=== PATIENT | female | born 1995 | race Caucasian/White ===

== ENCOUNTER 2017-05-14 22:59 | Inpatient (IN) | payer SELFPAY ==
[2017-05-15 01:02] LABS: Basophils % (Auto) 0.6 % (0.0-1.8); Hematocrit 39.9 % (30.3-42.9); Hemoglobin 13.4 gm/dl (10.1-14.3); Mean Corpuscular HGB Conc 34 % (30-34); Mean Corpuscular Hemoglobin 29 pg (28-32); Mean Corpuscular Volume 86 fl (79-97); Platelet Count 182 K/mm3 (140-440); Red Blood Count 4.64 M/mm3 (3.65-5.03); Red Cell Distribution Width 13.9 % (13.2-15.2); White Blood Count 8.8 K/mm3 (4.5-11.0)
[2017-05-15 01:20] LABS: Alanine Aminotransferase 675 units/L (7-56); Albumin 4.3 g/dL (3.9-5); Albumin/Globulin Ratio 1.3 %; Alkaline Phosphatase 173 units/L (35-129); Anion Gap 17 mmol/L; BUN/Creatinine Ratio 14; Blood Urea Nitrogen 7 mg/dL (7-17); Calcium 8.9 mg/dL (8.4-10.2); Carbon Dioxide 25 mmol/L (22-30); Chloride 101.1 mmol/L (98-107); Glucose 102 mg/dL (65-100); Lipase 26 units/L (13-60); Potassium 3.4 mmol/L (3.6-5.0); Sodium 140 mmol/L (137-145); Total Protein 7.7 g/dL (6.3-8.2)
[2017-05-15 01:57] LABS: Bilirubin,Urine MOD (Negative); Blood,Urine NEG (Negative); Ketones,Urine TR mg/dL (Negative); Leukocyte Esterase,Urine TR (Negative); Mucus,Urine 1+ /HPF; Nitrite,Urine NEG (Negative); Protein,Urine <15 mg/dL mg/dL (Negative); WBC,Urine < 1.0 /HPF (0.0-6.0)
[2017-05-15] MEDS ORDERED: NACL 0.9% 1000 ML 1,000 ML IV ONE (16:35)
[2017-05-15] MEDS ORDERED: ZOFRAN IV ONE (16:37)
[2017-05-15] MEDS ORDERED: MORPHINE IV ONE (16:37)
--- NOTE | 2017-05-15 16:46 | Emergency Department Report ---
ED Abdominal Pain HPI - General Chief Complaint: Abdominal Pain Stated Complaint: BACK/ABD PAIN Time Seen by Provider: 05/15/17 16:29 Source: patient Mode of arrival: Ambulatory Limitations: No Limitations - History of Present Illness Initial Comments: 21-year-old female 3 para 2 currently at unknown age gestation presenting to the ED complaining of abdominal pain. Onset of pain started 2 days prior to ED arrival. Pain is located right upper quadrant. Pain is radiating towards the epigastric region. Pain is accompanied by nausea vomiting that was nonbloody, nonbilious. Pt was just notified she was . Pt denies: fever/chills, headache, neck pain ,chest pain, abdominal pain, diarrhea MD Complaint: abdominal pain -: days(s) (1) Location: RUQ Radiation: epigastric Migration to: no migration Severity: moderate Severity scale (0 -10): 2 Quality: cramping Consistency: constant Improves With: nothing Worsens With: vomiting Associated Symptoms: nausea, vomiting. denies: diarrhea, constipation, dysuria , hematemesis, melena, hematuria - Related Data Home Medications Medication Instructions Recorded Confirmed Last Taken Pnv,Calcium 72/Iron/Folic Acid 1 cap PO DAILY 11/21/13 05/17/15 1 Day Ago [Pnv Plus Multivit Tab] 1 tab Previous Rx's Medication Instructions Recorded Last Taken Type Ibuprofen [Motrin 600 MG tab] 600 mg PO Q6HR #30 tablet 11/22/13 Unknown Rx oxyCODONE /ACETAMINOPHEN [Percocet 1 tab PO Q6H PRN #30 tablet 11/22/13 Unknown Rx 5/325 mg] Allergies Allergy/AdvReac Type Severity Reaction Status Date / Time No Known Allergies Allergy Verified 11/20/13 23:40 ED Review of Systems ROS: Stated complaint: BACK/ABD PAIN Other details as noted in HPI Constitutional: denies: chills, fever Eyes: denies: eye pain, eye discharge, vision change ENT: denies: ear pain, throat pain Respiratory: denies: cough, shortness of breath, wheezing Cardiovascular: denies: chest pain, palpitations Endocrine: no symptoms reported Gastrointestinal: abdominal pain, nausea, vomiting. denies: diarrhea, constipation, hematemesis, hematochezia Genitourinary: denies: urgency, dysuria, discharge Musculoskeletal: denies: back pain, joint swelling, arthralgia Skin: denies: rash, lesions Neurological: denies: headache, weakness, paresthesias Psychiatric: denies: anxiety, depression Hematological/Lymphatic: denies: easy bleeding, easy bruising ED Past Medical Hx - Past Medical History Previous Medical History?: No Hx Hypertension: No Hx Congestive Heart Failure: No Hx Diabetes: No Hx Deep Vein Thrombosis: No Hx Renal Disease: No Hx Sickle Cell Disease: No Hx Seizures: No Hx Asthma: No Hx COPD: No Hx HIV: No - Surgical History Past Surgical History?: No - Social History Smoking Status: Former Smoker Substance Use Type: Alcohol, Marijuana - Medications Home Medications: Home Medications Medication Instructions Recorded Confirmed Last Taken Type Pnv,Calcium 72/Iron/Folic Acid 1 cap PO DAILY 11/21/13 05/17/15 1 Day Ago History [Pnv Plus Multivit Tab] 1 tab Ibuprofen [Motrin 600 MG tab] 600 mg PO Q6HR #30 tablet 11/22/13 05/17/15 Unknown Rx oxyCODONE /ACETAMINOPHEN [Percocet 1 tab PO Q6H PRN #30 tablet 11/22/13 Unknown Rx 5/325 mg] ED Physical Exam - General Limitations: No Limitations General appearance: alert, in no apparent distress - Head Head exam: Present: atraumatic, normocephalic - Eye Eye exam: Present: normal appearance - ENT ENT exam: Present: mucous membranes moist - Neck Neck exam: Present: normal inspection - Respiratory Respiratory exam: Present: normal lung sounds bilaterally. Absent: respiratory distress - Cardiovascular Cardiovascular Exam: Present: regular rate, normal rhythm. Absent: systolic murmur, diastolic murmur, rubs, gallop - GI/Abdominal GI/Abdominal exam: Present: soft, normal bowel sounds - Extremities Exam Extremities exam: Present: normal inspection - Back Exam Back exam: Present: normal inspection - Neurological Exam Neurological exam: Present: alert, oriented X3 - Psychiatric Psychiatric exam: Present: normal affect, normal mood - Skin Skin exam: Present: warm, dry, intact, normal color. Absent: rash ED Course Vital Signs 05/15/17 05/15/17 05/15/17 00:18 06:39 08:19 Temperature 98.9 F 98.1 F 99.2 F Pulse Rate 58 L 60 77 Respiratory 20 14 16 Rate Blood Pressure 107/73 127/76 130/66 Blood Pressure [Right] O2 Sat by Pulse 100 100 Oximetry 05/15/17 05/15/17 05/15/17 16:21 16:30 16:38 Temperature 98.6 F Pulse Rate 59 L 53 L Respiratory 15 20 Rate Blood Pressure 138/89 Blood Pressure 119/71 [Right] O2 Sat by Pulse 89 100 100 Oximetry 05/15/17 05/15/17 05/15/17 16:45 18:23 18:31 Temperature Pulse Rate 52 L Respiratory 26 H Rate Blood Pressure 117/69 117/69 117/69 Blood Pressure [Right] O2 Sat by Pulse 100 89 95 Oximetry 05/15/17 05/15/17 05/15/17 18:45 19:01 19:15 Temperature Pulse Rate 57 L 58 L 56 L Respiratory 23 20 18 Rate Blood Pressure 82/41 79/35 96/48 Blood Pressure [Right] O2 Sat by Pulse 97 95 96 Oximetry 05/15/17 05/15/17 05/15/17 19:30 19:45 19:58 Temperature Pulse Rate 50 L 52 L Respiratory 17 22 18 Rate Blood Pressure 91/56 90/49 Blood Pressure [Right] O2 Sat by Pulse 97 96 97 Oximetry - Reevaluation(s) Reevaluation #1: 05/15/17 19:10 I consult with general surgery Dr. Borjas who says at this time surgery is not indicated. He recommends GI for possible ERCP/MRCP , and OB consult. He states at this time there is no indication for surgery. Reevaluation #2: 05/15/17 19:47 Dr Barreto - GI states he will consult on patient and likely perform MRCP, he states the patient will have to be advised that she has to cover her pelvis with barrier during MRCP and he'll explain risks of procedure to mom and early fetus. Dr Barreto- SERVICE TRAINER will admit patient to her service given that she 6 weeks however she will refer to GIs recommendation on management for patient' s symptoms. Reevaluation #3: 05/15/17 21:00 Dr Barreto SERVICE TRAINER at bedside evaluating pt and will place orders for admission ED Medical Decision Making - Lab Data Result diagrams: 05/15/17 00:32 05/15/17 00:32 - Radiology Data Radiology results: report reviewed, image reviewed Abdominal ultrasound results and final impression: Cholelithiasis, including gallstone in the gallbladder neck. There is no gallbladder wall thickening, but the common bile duct is facilitated there is mild intrahepatic biliary dilatation. Consider further evaluation and follow-up there is continued clinical concern for biliary pathology including acute cholecystitis, although taking into account the patient is . Dr Beck Single live intrauterine gestation approximately 6 weeks, [address] Beck - Medical Decision Making 21 yo female presenting to ED with abdominal pain. 1) gallstones During this visit patient no evidence of cholecystitis. GI was called for possible ERCP/MRCP. Gen. surgery Dr Suarez is on board however has no recognition that this time. Patient admits SERVICE TRAINER service Dr. Barreto accepting. 2) pregnacy nothing to do at this time, no evidence of ectopic Patient agrees to admission plan and has no questions at this time. Critical Care Time: Yes Critical care time in (mins) excluding proc time.: 35 Critical care attestation.: If time is entered above; I have spent that time in minutes in the direct care of this critically ill patient, excluding procedure time. Critical Care Time: 35 minutes of critical care time spent talking to patient, general surgery, OB, GI. ED Disposition Clinical Impression: Gallstones, Gallstones with obstruction of gallbladder, Transaminitis, Early stage of , Abdominal pain affecting Disposition: DC-[id number] OP ADMIT IP TO THIS HOSP Is pt being admited?: Yes Does the pt Need Aspirin: No Condition: Stable Instructions: Abdominal Pain (ED) Referrals: PRIMARY CARE, [Primary Care Provider] - 3-5 Days
--- NOTE | 2017-05-15 18:37 | Ultrasound Report ---
FINAL REPORT PROCEDURE: US ABDOMEN LIMITED TECHNIQUE: Real-time sonography in multiple planes of the gallbladder fossa and CBD with imaging of the adjacent liver, pancreas, and right kidney was performed with image documentation. CPT 57736 HISTORY: Right upper quadrant abdominal pain. COMPARISON: No prior studies are available for comparison. FINDINGS: Liver: Normal size and echotexture with no evidence of cystic or solid mass lesion. Gallbladder: There are several gallstones. One in the gallbladder neck measures 1.8 centimeters. One in the body measures 2.1 centimeters. A 3rd in the fundus measures 9 millimeters. Gallbladder wall thickness 1.6 millimeters. Common bile duct 13.5 millimeters. There is mild intrahepatic biliary dilatation. Intrahepatic bile ducts: Normal . Extrahepatic bile ducts: Normal . Pancreas: Normal as visualized with suboptimal depiction of the pancreatic tail. Right kidney: Normal echotexture. No focal renal mass, calculus, or hydronephrosis. The right kidney measures 11.9 x 4.8 x 5.3 centimeters with cortical thickness of 1.5 centimeters. Other: No free fluid. IMPRESSION: Cholelithiasis, including a gallstone in the gallbladder neck. There is not gallbladder wall thickening, but the common bile duct is dilated and there is mild intrahepatic biliary dilatation. Consider further evaluation and followup if there is continued clinical concern for biliary pathology including acute cholecystitis, although taking into account that patient is .
--- NOTE | 2017-05-15 18:47 | Ultrasound Report ---
FINAL REPORT PROCEDURE: US OB \T\lt; = 14 WEEKS FETUS TECHNIQUE: Real-time transabdominal and transvaginal sonography of the uterus, placenta, amniotic fluid, adnexa, and fetus was performed with image documentation. Measurements were obtained to determine age/size. M-mode Doppler was used to document heartbeat. CPT 98302 and 44970 HISTORY: Abdominal pain. COMPARISON: No prior studies are available for comparison. FINDINGS: LMP: 03/29/2017. Clinical age: 6 weeks 5 days. EDC: 01/03/2018. CRL: 4.4 millimeters, which corresponds to a gestational age of: 6 weeks 1 day. Yolk Sac: Normal. Embryonic Cardiac Activity: 113 beats per minute. Gestational Sac: Mean sac diameter 15.3 millimeters, 6 weeks 2 days. Amniotic fluid: Normal. Cervix: Normal. Uterus: 10.7 x 5.5 x 6.9 centimeters. Right Ovary: 2.9 x 2.1 x 2.5 centimeters. Normal flow. Left Ovary: 3.0 x 2.3 x 3.4 centimeters. 2 x 1.5 x 1.7 centimeter complex hypoechoic region. Normal flow. Estimated delivery date: 01/06/2018. IMPRESSION: 1. Single live intrauterine gestation at approximately 6 weeks, 2 days. 2. EDC by US 01/06/2018. 3. Complete anatomic survey at 18-20 weeks suggested. At this time complex hypoechoic area in the left ovary which likely represents complex cyst can be re-evaluated.
--- NOTE | 2017-05-15 18:49 | Ultrasound Report ---
FINAL REPORT PROCEDURE: US OB \T\lt; = 14 WEEKS FETUS TECHNIQUE: Real-time transabdominal and transvaginal sonography of the uterus, placenta, amniotic fluid, adnexa, and fetus was performed with image documentation. Measurements were obtained to determine age/size. M-mode Doppler was used to document heartbeat. CPT 26937 and 23780 HISTORY: Abdominal pain. COMPARISON: No prior studies are available for comparison. FINDINGS: LMP: 03/29/2017. Clinical age: 6 weeks 5 days. EDC: 01/03/2018. CRL: 4.4 millimeters, which corresponds to a gestational age of: 6 weeks 1 day. Yolk Sac: Normal. Embryonic Cardiac Activity: 113 beats per minute. Gestational Sac: Mean sac diameter 15.3 millimeters, 6 weeks 2 days. Amniotic fluid: Normal. Cervix: Normal. Uterus: 10.7 x 5.5 x 6.9 centimeters. Right Ovary: 2.9 x 2.1 x 2.5 centimeters. Normal flow. Left Ovary: 3.0 x 2.3 x 3.4 centimeters. 2 x 1.5 x 1.7 centimeter complex hypoechoic region. Normal flow. Estimated delivery date: 01/06/2018. IMPRESSION: 1. Single live intrauterine gestation at approximately 6 weeks, 2 days. 2. EDC by US 01/06/2018. 3. Complete anatomic survey at 18-20 weeks suggested. At this time complex hypoechoic area in the left ovary which likely represents complex cyst can be re-evaluated.
[2017-05-15] MEDS ORDERED: NACL 0.9% 1000 ML 1,000 ML IV SCH (20:00)
--- NOTE | 2017-05-15 22:33 | History and Physical Report ---
History of Present Illness Date of examination: 05/15/17 Date of admission: 05/15/17 Chief complaint: nausea ad vomiting and abdominal pain History of present illness: 21 yo LMP irregular began having nausea and vomiting on Thursday. Abdominal pain and cramping started Thursday as well. Patient denies vb no dysuria and no urgency . Pain also reported on right shoulder and gas pain . Urine was also noted dark. Patient came to Er because of the pain and unable to keep food. Patient has not been eating since Thursday becuase of the pain. Relief of the pain ranked 5/10 after vomiting. She rports pain in the mid epigastric area. patient was not aware that she was until US ordered today. She currently has no pain. Past History Past Medical History: no pertinent history Past Surgical History: no surgical history Family/Genetic History: diabetes (father), hypertension (father) Social history: no significant social history, , lives with family, smoking, alcohol abuse. denies: prescription drug abuse - Obstetrical History Expected Date of Delivery: 01/03/18 Actual Gestation: 6 Week(s) 5 Day(s) : 3 Para: 2 Hx # Term Pregnancies: 2 Number of Pregnancies: 0 Spontaneous Abortions: 0 Induced : 0 Number of Living Children: 2 Medications and Allergies Allergies Allergy/AdvReac Type Severity Reaction Status Date / Time No Known Allergies Allergy Verified 11/20/13 23:40 Home Medications Medication Instructions Recorded Confirmed Last Taken Type Pnv,Calcium 72/Iron/Folic Acid 1 cap PO DAILY 11/21/13 05/17/15 1 Day Ago History [Pnv Plus Multivit Tab] 1 tab Ibuprofen [Motrin 600 MG tab] 600 mg PO Q6HR #30 tablet 11/22/13 05/17/15 Unknown Rx oxyCODONE /ACETAMINOPHEN [Percocet 1 tab PO Q6H PRN #30 tablet 11/22/13 Unknown Rx 5/325 mg] Active Meds: Active Medications Sodium Chloride (Nacl 0.9% 1000 Ml) 1,000 mls @ 100 mls/hr IV DIRECT TYLER Review of Systems All systems: negative Gastrointestinal: abdominal pain, nausea, vomiting - Vital Signs Vital signs: Vital Signs Temp Pulse Resp BP Pulse Ox 98.9 F 58 L 20 107/73 100 05/15/17 00:18 05/15/17 00:18 05/15/17 00:18 05/15/17 00:18 05/15/17 00:18 Temp Pulse Resp BP Pulse Ox 98.6 F 52 L 18 90/49 97 05/15/17 16:38 05/15/17 19:45 05/15/17 19:58 05/15/17 19:45 05/15/17 19:58 - Physical Exam Breasts: Positive: deferred Cardiovascular: Regular rate, Normal S1 Lungs: Positive: Clear to auscultation, Normal air movement Abdomen: Positive: normal appearance, soft, normal bowel sounds. Negative: distention, tenderness, guarding Genitourinary (Female): Positive: normal external genitalia, normal perenium Vulva: both: normal Uterus: Positive: normal size Anus/Rectum: Positive: normal perianal skin Extremities: Positive: normal Deep Tendon Reflex Grade: Normal +2 Results Result Diagrams: 05/15/17 00:32 05/15/17 00:32 Abnormal lab results 05/15/17 05/15/17 05/15/17 Range/Units 00:32 00:32 00:32 Seg Neutrophils % 70.8 H (40.0-70.0) % Potassium 3.4 L (3.6-5.0) mmol/L Creatinine 0.5 L (0.7-1.2) mg/dL Glucose 102 H (65-100) mg/dL Total Bilirubin 2.20 H (0.1-1.2) mg/dL AST 382 H (5-40) units/L ALT 675 H (7-56) units/L Alkaline Phosphatase 173 H (35-129) units/L HCG, Quant 5892 H (0-4) mIU/mL All other labs normal. Ultrasound: report reviewed Assessment and Plan A/P IUP 6 weeks (viable) abdominal pain elevated liver enzymes consult pending with Dr. Estevan Flores in am await recommendations initate IVF, pain meds
[2017-05-16] MEDS ORDERED: LACTATED RINGERS 1,000 ML IV SCH (05:00)
[2017-05-16] MEDS ORDERED: COLACE PO PRN (05:00)
[2017-05-16] MEDS ORDERED: TYLENOL PO PRN (05:00)
--- NOTE | 2017-05-16 13:27 | Event Note ---
Date: 05/16/17 Awaiting consult from GI No new complaints. paged Dr. Barreto ( GI)
--- NOTE | 2017-05-16 13:40 | Consultation ---
DATE OF SERVICE: 05/16/2017 HISTORY OF PRESENT ILLNESS: This patient was seen in the Emergency Room last night. She is a 21-year-old -[place] female. She came because of severe pain that she developed in the right upper quadrant of about 3 days' duration. She had some pains like these every now and then over the last year. She did not seek any medical attention at that point. At this time, she was evaluated by our ER physician. According to them, the pain would radiate to the right flank and towards the epigastric area associated with nausea and vomiting. She had no blood in the vomitus and it was not bilious. She said that she was found being . She had no fever and her white count was 8.8, hemoglobin was 13.4. The potassium is 3.4. Hepatitis C antibodies and hepatitis A was negative. Her total bilirubin is 2.2 and the alkaline phosphatase is 173. The ALT and the AST were elevated. The lipase was negative. The hCG qualitative was positive and quantitative is 5892. According to the patient, when I saw her this morning, she told me that the pain is gone completely and she is little bit hungry. She had abdominal ultrasound yesterday upon presenting via the Emergency Room and it showed evidence of stones in the gallbladder and some in the thick area. The patient was seen by Cara Barreto MD, who admitted her apparently for the obvious aspect of the problem. As mentioned above, the patient had these symptoms every now and then over the last year. PAST MEDICAL HISTORY: She has 2 children; the youngest is 2 years old. ALLERGIES: The patient is not allergic to any medicine. She never had any abdominal operations. She denied any diabetes mellitus. She denied any high blood pressure. PHYSICAL EXAMINATION: GENERAL: At this point showed a well preserved, morbidly obese -[place] female. She is sociable, in no distress. HEAD AND NECK: Negative. NECK: Supple. CHEST: Essentially clear. HEART: Sounds normal. BREASTS: Symmetric. ABDOMEN: Protuberant, soft, benign. No evidence of any tenderness at the abdomen. EXTREMITIES: Showed no significant edema. IMPRESSION AND PLAN: Right upper quadrant pain of 3-4 days' duration with nausea and vomiting with evidence of high bilirubin of 2.2 and ultrasound compatible with dilated common bile duct. The gallbladder wall was a bit thickened at 1.6 mm. Common bile duct is 13.5 mm, which was very high. Surgically speaking, I do not think the patient can face any surgical intervention by virtue of she is only 6 weeks . I believe at the present time, she needs to make a major decision as to thinking her because she would need an operation may be or I gave her the option of doing cholecystostomy on her, this would be done by Interventional Radiology. I believe we may feed her now, but we will go from left the decision really for her as well her . I do not think any surgery needs to be done on her, may be a cholecystostomy and she needs to have a GI see her. JOB# [id number] ЕЛ[facility]/CINDY
[2017-05-16] MEDS: PRENATAL VITAMIN PO SCH (17:59)
--- NOTE | 2017-05-16 18:53 | Event Note ---
Date: 05/16/17 - full consult dictate - pt 6 weeks now increase lft's and dilated cbd - discussed w/ pt, mrcp not option, - pt to consider ERCP (less likely) vs conservative management (more likely - will follow
--- NOTE | 2017-05-17 03:03 | Consultation ---
INDICATION: Abdominal pain due to increased liver function tests. REFERRING PHYSICIAN: Cara Barreto MD HISTORY OF PRESENT ILLNESS: The patient is a 21-year-old female who presents for abdominal pain. The patient reports recent nausea and vomiting with eating, especially fatty foods. The patient reports this started this past Thursday. She reported some right shoulder pain. She reports no lower GI symptoms including diarrhea, constipation or rectal bleeding. The patient subsequently came to the Emergency Room. In the Emergency Room, she was noted to have increased liver function tests and ultrasound showing dilated common bile duct with a question of a CBD stone. The patient subsequently admitted and GI consulted. PAST MEDICAL HISTORY: None. MEDICATIONS: None. ALLERGIES: No known drug allergies. SOCIAL HISTORY: Denies alcohol, tobacco or drug abuse. FAMILY HISTORY: Negative for colon cancer, IBD, or liver disease. REVIEW OF SYSTEMS: GENERAL: Reports mild weakness. HEENT: No visual complaints or tinnitus. PULMONARY: Denies shortness of breath. CARDIOVASCULAR: Denies chest pain. GASTROINTESTINAL: Reports abdominal pain. All points of 13-point review of systems otherwise negative. PHYSICAL EXAMINATION: VITAL SIGNS: Temperature of 98.8, pulse 80, respirations 18, blood pressure of 97/32. HEENT: Pupils equal, round, reactive to light and accommodation. Extraocular muscles intact. PULMONARY: Clear to auscultation bilaterally. CARDIOVASCULAR: Regular rhythm. Normal S1, S2. ABDOMEN: Positive bowel sounds, soft. SKIN: No obvious rashes. LABORATORY DATA: Pertinent for white count of 8.8, hemoglobin and hematocrit of 13.1 and 39.9, platelet count of 182. Chem-7 within normal limits. Total bilirubin of 2.2, AST and ALT of 382 and 675, alkaline phosphatase of 123. HCG positive. Ultrasound showed bile duct is dilated with mild intrahepatic dilation and gallstones. ASSESSMENT AND PLAN: A 21-year-old female who now found to be 6 weeks , presents now with less than 1 week of right upper quadrant pain, worse with eating, with pain radiating to the right shoulder with an ultrasound showing gallstones with a question of common bile duct dilation and labs showing increased liver function tests. The patient has gallstones with a possibility of choledocholithiasis. Due to her 6 weeks , she is not a candidate for MRCP at this time. I have discussed the options with the patient including a consideration of ERCP if she elects to not have the or with the risk of possible compromise from the procedure versus conservatively managing and see how she does with a low fat diet. The patient would like to discuss her options with her . PLAN: 1. Follow LFTs. 2. Low fat diet. 3. Await further surgery input. 4. We will follow up in a.m. JOB# [id number] [facility]/CINDY
[2017-05-17 07:52] LABS: Alanine Aminotransferase 302 units/L (7-56); Albumin 3.7 g/dL (3.9-5); Albumin/Globulin Ratio 1.3 %; Alkaline Phosphatase 149 units/L (35-129); Anion Gap 16 mmol/L; BUN/Creatinine Ratio 16; Blood Urea Nitrogen 8 mg/dL (7-17); Calcium 8.9 mg/dL (8.4-10.2); Carbon Dioxide 24 mmol/L (22-30); Glucose 87 mg/dL (65-100); Sodium 138 mmol/L (137-145); Total Protein 6.6 g/dL (6.3-8.2)
[2017-05-17 07:56] LABS: Potassium 4.2 mmol/L (3.6-5.0)
--- NOTE | 2017-05-17 09:49 | Gastroenterology Progress Note ---
Subjective Date of service: 05/17/17 Interval history: GI: pt w/ increase lft's and ultrasound suggesting biliary obstruction - pt labs improving, possible passed stone - discussed w/ pt, defers ERCP at this time (reasonable) - low fat diet - ok to d/c from GI standpoint - GB per surgery - call if needed Objective - Constitutional Vitals: Temp Pulse Resp BP Pulse Ox 98.8 F 65 20 92/46 99 05/17/17 05:10 05/17/17 05:10 05/17/17 05:10 05/17/17 05:10 05/16/17 08:02 - Labs CBC & Chem 7: 05/15/17 00:32 05/17/17 07:11 Labs: Laboratory Results - last 24 hr 05/17/17 07:11 Sodium 138 Potassium 4.2 D Chloride 102.0 Carbon Dioxide 24 Anion Gap 16 BUN 8 Creatinine 0.5 L Estimated GFR > 60 BUN/Creatinine Ratio 16 Glucose 87 Calcium 8.9 Total Bilirubin 0.80 AST 69 H ALT 302 H Alkaline Phosphatase 149 H Total Protein 6.6 Albumin 3.7 L Albumin/Globulin Ratio 1.3
[2017-05-17] MEDS: PRENATAL VITAMIN PO SCH (11:39)
--- NOTE | 2017-05-17 15:09 | Progress Note ---
Subjective Patient Reports: Positive: feels better, flatus Narrative: Pain free LFT improved , indicated to Pt , that Sx may recure . will see PRN, Objective Vital Signs - 12hr 05/17/17 05:10 Temperature 98.8 F Pulse Rate 65 Respiratory 20 Rate Blood Pressure 92/46 [Right] - Labs 05/15/17 00:32 05/17/17 07:11 Diabetes panel 05/17/17 Range/Units 07:11 Sodium 138 (137-145) mmol/L Potassium 4.2 D (3.6-5.0) mmol/L Chloride 102.0 (98-107) mmol/L Carbon Dioxide 24 (22-30) mmol/L BUN 8 (7-17) mg/dL Creatinine 0.5 L (0.7-1.2) mg/dL Glucose 87 (65-100) mg/dL Calcium 8.9 (8.4-10.2) mg/dL AST 69 H (5-40) units/L ALT 302 H (7-56) units/L Alkaline Phosphatase 149 H (35-129) units/L Total Protein 6.6 (6.3-8.2) g/dL Albumin 3.7 L (3.9-5) g/dL Calcium panel 05/17/17 Range/Units 07:11 Calcium 8.9 (8.4-10.2) mg/dL Albumin 3.7 L (3.9-5) g/dL Pituitary panel 05/17/17 Range/Units 07:11 Sodium 138 (137-145) mmol/L Potassium 4.2 D (3.6-5.0) mmol/L Chloride 102.0 (98-107) mmol/L Carbon Dioxide 24 (22-30) mmol/L BUN 8 (7-17) mg/dL Creatinine 0.5 L (0.7-1.2) mg/dL Glucose 87 (65-100) mg/dL Calcium 8.9 (8.4-10.2) mg/dL Adrenal panel 05/17/17 Range/Units 07:11 Sodium 138 (137-145) mmol/L Potassium 4.2 D (3.6-5.0) mmol/L Chloride 102.0 (98-107) mmol/L Carbon Dioxide 24 (22-30) mmol/L BUN 8 (7-17) mg/dL Creatinine 0.5 L (0.7-1.2) mg/dL Glucose 87 (65-100) mg/dL Calcium 8.9 (8.4-10.2) mg/dL Total Bilirubin 0.80 (0.1-1.2) mg/dL AST 69 H (5-40) units/L ALT 302 H (7-56) units/L Alkaline Phosphatase 149 H (35-129) units/L Total Protein 6.6 (6.3-8.2) g/dL Albumin 3.7 L (3.9-5) g/dL
--- NOTE | 2017-05-17 15:37 | Progress Note ---
Assessment and Plan A/P IUP 6 weeks (viable) seen by GI and surgery patient will decide plan of mgt considering surgery to be discharged after recommendations of GI and surgery improving liver enzymes continue present mgt Subjective - Subjective Date of service: 05/17/17 Principal diagnosis: abdominal pain and gallstones Interval history: 21 yo LMP irregular began having nausea and vomiting on Thursday. Abdominal pain and cramping started Thursday as well. Patient denies vb no dysuria and no urgency . Pain also reported on right shoulder and gas pain . Urine was also noted dark. Patient came to Er because of the pain and unable to keep food. Patient has not been eating since Thursday becuase of the pain. Relief of the pain ranked 5/10 after vomiting. She rports pain in the mid epigastric area. patient was not aware that she was until US ordered today. She currently has no pain. Patient reports: appetite normal, voiding normally, pain well controlled, flatus , ambulating normally Objective - Vital Signs Latest vital signs: Vital Signs Temp Pulse Resp BP 05/17/17 05:10 98.8 F 65 20 92/46 05/17/17 00:09 98.8 F 76 20 104/63 05/16/17 21:00 98.7 F 57 L 18 98/41 Intake and Output 05/16/17 05/17/17 05/17/17 23:59 07:59 15:59 Intake Total 240 Output Total 300 Balance -60 Intake: Intake, Free Water 240 Output: Urine 300 Void 300 Other: Total, Output Amount 300 Voiding Method Toilet - Exam Breasts: Present: deferred Cardiovascular: Present: Regular rate, Normal S1 Lungs: Present: Clear to auscultation Abdomen: Present: normal appearance, soft, normal bowel sounds. Absent: distention, tenderness Vulva: both: normal Uterus: Present: normal Extremities: Present: normal Deep Tendon Reflex Grade: Normal +2 - Labs Labs: Abnormal lab results 05/17/17 Range/Units 07:11 Creatinine 0.5 L (0.7-1.2) mg/dL AST 69 H (5-40) units/L ALT 302 H (7-56) units/L Alkaline Phosphatase 149 H (35-129) units/L Albumin 3.7 L (3.9-5) g/dL
--- NOTE | 2017-05-17 16:29 | Event Note ---
Date: 05/17/17 Patient indicted that she has decided to have the surgery. She has appt with an clinic for next week and will f/u with Dr. loyola for surgery to remove gallbladder. Patient to be discharged home with pain meds and precautions. She was given precautions
--- NOTE | 2017-05-17 16:31 | Discharge Summary ---
Providers - Providers Date of Admission: 05/16/17 05:00 Date of discharge: 05/17/17 Attending physician: GABRIELLE SCHWARTZ MD Primary care physician: [facility] WORK[facility] Hospitalization Reason for admission: other (abdominal pain 6 weeks ) Discharge diagnosis: other (Gallstones ) Condition at discharge: Good Disposition: [id number] TO HOME OR SELFCARE Plan - Provider Discharge Summary Activity: routine Diet: routine Instructions: routine Additional instructions: [] Smoking cessation referral if applicable(refer to patient education folder for contact #) [] Refer to [facility]'s [facility] Booklet Call your doctor immediately for: * Fever > 100.5 * Heavy vaginal bleeding ( >1 pad per hour) * Severe persistent headache * Shortness of breath * Reddened, hot, painful area to leg or breast * Drainage or odor from incision. * Keep incision clean and dry at all times and follow doctor's instructions regarding bathing/showering - Follow up plan Follow up: PRIMARY CARE, [Primary Care Provider] - 7 Days
[2017-05-17 18:10] VITALS: BP 101/49
== END 2017-05-17 19:00 | disposition home or self-care (01) | DRG 781 ==
LOC: ED 22:59 → OB 05-16 05:00
PROVIDERS: ADMIT Obstetrics & Gynecology; ATTEND Obstetrics & Gynecology
DX: O99.611 Diseases of the digestive system complicating pregnancy, first trimester (principal); K80.21 Calculus of gallbladder without cholecystitis with obstruction; Z3A.01 Less than 8 weeks gestation of pregnancy; Z87.891 Personal history of nicotine dependence
CPT/HCPCS: 36415; 76705; 76801; 76817; 80053; 80074; 81001; 83690; 84702; 84703; 85025; 87210; 87591; J7030; J7120

== ENCOUNTER 2021-07-04 22:55 | Emergency (ER) | payer SELFPAY ==
[2021-07-05 00:17] VITALS: BP 113/61
[2021-07-05 01:41] LABS: Bilirubin,Urine SM (Negative); Blood,Urine NEG (Negative); Color,Urine Amber (Yellow); Mucus,Urine 3+ /HPF
[2021-07-05 01:42] LABS: Alanine Aminotransferase 66 units/L (7-56); Albumin 4.8 g/dL (3.9-5); BUN/Creatinine Ratio 18; Blood Urea Nitrogen 14 mg/dL (7-17); Calcium 9.7 mg/dL (8.4-10.2); Hemolysis Index 22
[2021-07-05 01:43] LABS: Hematocrit 44.7 % (30.3-42.9); Hemoglobin 14.1 gm/dl (10.1-14.3); Mean Corpuscular HGB Conc 32 % (30-34); Mean Corpuscular Volume 87 fl (79-97); Platelet Count 209 K/mm3 (140-440); Red Blood Count 5.13 M/mm3 (3.65-5.03); Red Cell Distribution Width 14.2 % (13.2-15.2)
[2021-07-05 01:49] LABS: Ictotest,Urine Negative (Negative)
[2021-07-05 01:50] LABS: HCG Qualitative,Urine Negative (Negative)
== END 2021-07-05 01:00 | disposition left against medical advice (07) ==
LOC: ED 22:55
DX: R10.9 Unspecified abdominal pain (principal); R11.2 Nausea with vomiting, unspecified; Z53.21 Procedure and treatment not carried out due to patient leaving prior to being seen by health care provider
CPT/HCPCS: 36415; 80053; 81001; 81025; 83690; 85027